=== PATIENT | female | born 1975 | race Caucasian/White ===

== ENCOUNTER 2018-08-31 20:12 | Inpatient (IN) ==
[2018-09-01] MEDS ORDERED: Naloxone 0.4 MG/ML INJ IVP PRN (01:20)
[2018-09-01] MEDS: 0.9 % Sodium Chloride 1,000 ML IVC SCH ×2 (01:40→17:44)
[2018-09-01 02:27] LABS: Basophils # 0.1 K/mcL (0.0-0.2); Basophils % 0.5 %; Eosinophils % 0.1 %; Hematocrit 40.3 % (35.3-44.9); Hemoglobin 14.1 g/dL (11.5-15.4); Immature Granulocytes % 0.4 % (0-4); Lymphocytes # 1.8 K/mcL (0.6-4.6); Lymphocytes % 11.3 %; Mean Corpuscular Hemoglobin 31.3 pg (28.0-33.3); Mean Corpuscular Volume 89.6 fL (83.0-100.0); Mean Platelet Volume 9.2 fL (9.4-12.4); Monocytes # 0.9 K/mcL (0.0-1.3); Monocytes % 5.8 %; Neutrophils # 13.2 K/mcL (1.6-8.9); Platelet Count 332 K/mcL (140-400); Red Cell Distribution Width 12.7 % (11.5-14.5); Segmented Neutrophils % 81.9 %
[2018-09-01 02:36] LABS: Prothrombin Time 11.7 Seconds (9.4-12.1)
[2018-09-01 02:39] LABS: Activated Partial Thrombo Time 30.6 Seconds (26.0-36.0)
[2018-09-01 02:45] LABS: Alanine Aminotransferase 10 Units/L (7-52); Albumin 4.1 g/dL (3.5-5.7); Albumin/Globulin Ratio 1.5 (1.1-2.2); Alkaline Phosphatase 47 Units/L (34-104); Aspartate Amino Transferase 12 Units/L (13-39); BUN/Creatinine Ratio 16 (6-26); Bilirubin,Total 0.6 mg/dL (0.3-1.0); Blood Urea Nitrogen 9 mg/dL (6-20); Calcium 8.9 mg/dL (8.6-10.3); Carbon Dioxide 20 mEq/L (23-29); Chloride 104 mEq/L (98-107); Globulin 2.7 g/dL (2.4-3.5); Glucose 119 mg/dL (70-105); Osmolality,Calculated 278 (280-300); Potassium 3.5 mEq/L (3.5-5.1); Sodium 134 mEq/L (136-145); Total Protein 6.8 g/dL (6.4-8.9); eGFR For Non-African Americans > 60 (> 60)
--- NOTE | 2018-09-01 02:59 | Internal Med History&Physical ---
Date of Encounter: 09/01/18 Time of Encounter: 01:00 Internal Medicine - H&P: HPI Chief complaint: uncontrolled HTN; episaxtis Admitted From: Hospital to Hospital Transfer Plans for Post Hospital Care: Home History of present illness: Ms. Don is a 42 year old female who presents in transfer from [facility] ER in [place]. She presented there with an uncontrolled nosebleed requiring intervention and packing in the ER. Her blood pressure was also noted to be significantly elevated in excess of 250 systolic. However, that was after she received Atif-Synephrine to her nares in hopes of trying to control the nosebleed. Her nosebleed was controlled in her left naris with nasal packing in the ER. Then, a transfer request was made to send patient to [facility] for ongoing care and ENT consultation. Upon my assessment of the patient at the bedside, she was feeling relatively well other than pressure in her left naris from the packing. As I was interviewing her and examining her, she started having some bloody dribble from her right nares, which then became a steady dribble to steady flow. Within a minute or two, she became nauseous and did vomit up a cupful of blood, presumably from the back of her throat/postnasal drip. I had her pinch her nose and asked her nurse to help clean her up while I contacted ENTDr. William Herbert. He suggested we try and put pressure on the right nares and control her blood pressure since she cannot tolerate any vasoconstrictors due to blood pressure. He asked that I call him back shortly afterwards. I reassessed the patient shortly thereafter and her bleeding had stabilized. She still had some bloody discharge, but it was more of a slow dribble at that point. I asked her and her nurse to continue to hold pressure for at least 20 minutes and to monitor closely. I contacted Dr. Herbert back and asked him to see her in consultation in the morning. However, if she develops any significant bleed from the nose and/or vomiting blood from postnasal bloody discharge, I will ask him to come in urgently. Meanwhile, we will try to control blood pressure and monitor her closely. Patient denies any prior problems with nosebleeds, sinus problems, nasal polyps, or hemoptysis. She does smoke. She denies any illicit drug use. She drinks rare alcohol. Past Med Surg Social Fam HX - Past Medical History Attestation: Yes The following information was validated with the patient. Source: patient, obtained from family, other (limited [facility] records) Medical history: hypertension Psychiatric history: no psych history - Past Surgical History Surgical History: - Social History Smoking Status: Current every day smoker Packs per day: 0.5 Smokeless Tobacco Status: No Alcohol use: none Drug use: none Current living situation: Home, With Family Activity Level: Independent ambulation Recent Out of Country Travel Within the Last 8 Weeks: No - Family History Mother History Unknown: Yes Hx Family HEENT Disorders: No Father Hx Family HEENT Disorders: No Internal Medicine - H&P: Meds No Known Home Drugs 08/31/18 [History] Allergy/AdvReac Type Severity Reaction Status Date / Time Penicillins Allergy Rash Verified 08/31/18 22:58 - Constitutional Constitutional: no chills, no fever(s), no night sweats - EENT Eyes: no blurry vision, no change in vision Ears: no ear pain, no tinnitus Nose, mouth and throat: epistaxis, no nasal congestion, no nasal discharge, no sinus pain, no sinus pressure, no sore throat - Cardiovascular Cardiovascular ROS IM: no chest pain, no dyspnea, no dyspnea on exertion - Respiratory Respiratory: no cough, no hemoptysis, no chest congestion, no excessive phlegm production, no change in phlegm color, no pain with cough - Gastrointestinal Gastrointestinal: no abdominal pain, no diarrhea, no hematemesis, no hematochezia, no melena, no nausea, no vomiting - Genitourinary Genitourinary: no dysuria, no flank pain, no hematuria - Musculoskeletal Musculoskeletal ROS IM: no arthralgias, no back pain - Integumentary Integumentary IM: no rash, no jaundice - Neurological Neurological ROS: no disequilibrium, no dizziness, no focal weakness, no frequent falls, no headache(s) - Psychiatric Psychiatric: no anxiety, no depression - Endocrine Endocrine IM: no polydipsia, no polyphagia, no polyuria - Allergic/Immunologic Allergic/Immunologic: no wheezing, no GI upset with certain foods - Constitutional Vitals: Temp Pulse Resp BP Pulse Ox 98.5 F 111 18 168/106 98 08/31/18 23:00 08/31/18 23:00 08/31/18 23:00 08/31/18 23:00 08/31/18 23:00 General appearance: Present: cooperative, mild distress, A&O X 3, pleasant, answers questions appropriately Exam: blood dripping from right nostril/naris - Head Head exam: Present: atraumatic, normal inspection - Eye Eye exam: Present: EOMI, PERRL. Absent: scleral icterus Pupils: Present: normal accommodation - ENT ENT exam: Present: normal external ear exam, normal oropharynx Additional comments: left naris packed from [facility]; right naris with bright red blood now slowly dripping - Neck Neck exam general surgery: Present: full ROM, supple, trachea midline. Absent: lymphadenopathy, tenderness, nuchal rigidity, thyromegaly - Respiratory Respiratory exam: Present: CTAB. Absent: chest wall tenderness, rales, rhonchi, wheezes - Cardiovascular Cardiovascular exam: Present: RRR, +S1, +S2. Absent: diastolic murmur, systolic murmur - GI/Abdominal GI/Abdominal exam: Present: normal bowel sounds, soft. Absent: guarding, hepatomegaly, mass, rebound, splenomegaly, tenderness - Extremities Exam Extremities exam: Present: full ROM, normal capillary refill, warm, radial pulse s palpable and symmetrical. Absent: calf tenderness, pedal edema, tenderness - Back Exam Back exam: Present: normal inspection. Absent: CVA tenderness (L), CVA tenderness (R) - Neurological Exam Neurological exam: Present: alert, CN II-XII intact, oriented X3, no focal deficits - Psychiatric Psychiatric exam: Present: normal affect, normal mood - Skin Skin exam: Present: dry, intact, warm Internal Med - H&P Results - Labs CBC & Chem 7: 09/01/18 02:06 Labs: Short CBC 09/01/18 Range/Units 02:06 WBC 16.1 H (4.3-11.1) K/mcL Hgb 14.1 (11.5-15.4) g/dL Hct 40.3 (35.3-44.9) % Plt Count 332 (140-400) K/mcL Neutrophils # 13.2 H (1.6-8.9) K/mcL I reviewed the labs from [facility] and include the following: WBC 8.8 Hemoglobin 15.6 Hematocrit 46.7 Platelets 330 Sodium 137 Potassium 4.6 Chloride 104 Carbon dioxide 27 BU when 12 Glucose 96 Creatinine 0.73 PT 10.7 INR 0.9 PTT 31 Chest x-ray negative Head CT negative - Assessment and Plan (1) Severe epistaxis Current Visit: Yes Status: Acute Assessment and plan: 1. Patient and RN instructed to apply pressure to right side of nose in hopes of containing nosebleed. 2. Monitor closely. 3. If severe epistaxis occurs again and/or she vomits any significant blood as before, will call in Dr. Herbert urgently. Furthermore, if she develops any further concern for aspiration of blood, will prophylactically intubate if necessary to protect her airway. 4. Will start Rocephin to cover nasal pathogens. 5. ENT consultation with Dr. Herbert -- to see in the morning, sooner if necessary. (2) Uncontrolled hypertension Current Visit: Yes Status: Acute Assessment and plan: 1. Will closely and on telemetry. 2. Will order Hydralazine and Labetolol PRN to control BP. 3. Will start Lisinopril daily for chronic BP control. (3) DVT prophylaxis Current Visit: Yes Status: Acute Assessment and plan: 1. EPCD's. 2. No AC due to epistaxis.
[2018-09-01] MEDS ORDERED: *HR* Labetalol 20 MG/4 ML SYRINGE IVP ONE ×2 (03:16→05:09)
[2018-09-01] MEDS: *HR* Labetalol 20 MG/4 ML SYRINGE IVP PRN ×2 (03:34→09:16)
[2018-09-01] MEDS: Ondansetron 4 MG/2 ML VIAL IVP PRN (05:32)
[2018-09-01] MEDS ORDERED: 0.9 % Sodium Chloride 1,000 ML IVC ONE (05:51)
--- NOTE | 2018-09-01 06:14 | ENT - Consult Note ---
Date of Encounter: 09/01/18 Time of Encounter: 06:10 Assessment and Plan (1) Severe epistaxis Current Visit: Yes Status: Acute --The Merocel packing was misplaced, this was removed, and a 5.5 cm Rhino Rocket was placed in the left nasal cavity. After placement there is no evidence of active bleeding. --The patient is tachycardic approximately 109, given that the patient has had severe epistaxis for over 12 hours continue fluid resuscitation with IV fluids. --The packing is to be in place for approximately 3-5 days. --While the patient has packing present, I do recommend that the patient be on an antibiotic such as Keflex 500 mg 3 times a day. --The patient will follow up in my office in 3-5 days for removal of the nasal packing --ENT will sign off, however we will be available if there is any further bleeding. (2) Uncontrolled hypertension Current Visit: Yes Status: Acute --Likely contributing factor to epistaxis --Management per Primary History of Present Illness Reason for ENT Consult: epistaxis Requesting physician: Leroy Hanson History of present illness: This is a 42-year-old female who presented as a transfer from [facility] with hypertensive urgency. The patient was experiencing high blood pressure with systolic pressures over 250. ENT is being asked to see the patient in consultation for epistaxis. According to the patient she has been experiencing a left-sided nosebleeds since 11 AM on 08/31/2018. The patient states that she did not do any type of effort to stop the nosebleed and was then subsequently seen in [facility] emergency departm ent and a Merocel packing was placed on the left. The patient has continued to bleed around the packing when she Valsalva's, especially when vomiting. The patient denies any trauma to the nose, nasal irritants, nose picking, recent surgery to the nose, or any history of septal perforation. The patient denies any personal or family history of bleeding disorders, she herself does have a history of hypertension. Past Med Surg Social Fam HX - Past Medical History Medical history: hypertension Psychiatric history: no psych history - Past Surgical History Surgical History: - Social History Smoking Status: Current every day smoker Packs per day: 0.5 Smokeless Tobacco Status: No Alcohol use: none Drug use: none - Family History Mother History Unknown: Yes Hx Family HEENT Disorders: No Father Hx Family HEENT Disorders: No Medications and Allergies No Known Home Drugs 08/31/18 [History] Allergy/AdvReac Type Severity Reaction Status Date / Time Penicillins Allergy Rash Verified 08/31/18 22:58 ENT - ROS - Constitutional Constitutional ROS: headache(s), no fever(s) - EENT Nose, mouth and throat: as per HPI - Cardiovascular Cardiovascular ROS IM: no chest pain, no chest pain at rest, no chest pain with activity, no dyspnea, no edema, no irregular heart rhythm, no radiating jaw, neck or arm pain, no lightheadedness, no orthopnea, no paroxysmal nocturnal dyspnea, no syncope - Respiratory no cough, no dyspnea, no hemoptysis, no dyspnea on exertion, no wheezing, no snoring, no stridor, no pain on inspiration, no chest congestion, no excessive phlegm production, no change in phlegm color, no pain with cough - Musculoskeletal Musculoskeletal ROS: no abnormal gait, no muscle weakness, no myalgias, no neck pain, no numbness, no stiffness, no tingling - Neurological Neurological ROS: no abnormal gait, no abnormal hearing, no abnormal speech, no disequilibrium, no dizziness, no focal weakness, no frequent falls, no headache(s), no lack of coordination, no numbness, no paresthesias, no restless legs, no syncope, no tingling, no tremor(s), no vertigo, no weakness - Endocrine Endocrine: no cold intolerance, no deeping of the voice, no excessive sweating, no fatigue, no flushing, no heat intolerance, no polydipsia, no polyphagia, no polyuria ENT Exam Initial Vital Signs Pulse BP 109 158/97 08/31/18 21:45 08/31/18 21:45 - Eyes PERRL, normal ocular movement - ENT normal pinna, normal mucosa, no hearing loss, no congestion, deviated nasal septum, Other (There is a 10 cm Merocel packing that is not completely inserted into the left nasal cavity, there is blood wicking from the packing. There is no evidence of septal perforation, the right nasal septum does not show any evidence of active bleeding. On oral exam, the mucosa is dry in the mouth, there is no evidence of active bleeding. Posterior pharyngeal wall after placement of the 5.5 cm Rhino Rocket.). negative: normal nares, decreased hearing, nasal discharge, poor care home, dentures, mucosal exudate - Neck no masses, trachea midline, no lymphadectomy. negative: deviated trachea, diffuse goiter, limited ROM - Respiratory normal respiratory effort, clear to percussion - Neurologic CN 2-12 grossly intact, normal coordination, normal sensation - Psychiatric oriented to time, oriented to person, oriented to place, speech is normal, memory intact Exam Initial Vital Signs Pulse BP 109 158/97 08/31/18 21:45 08/31/18 21:45 Results - Labs 09/01/18 02:06 09/01/18 02:06 Abnormal lab results WBC 16.1 K/mcL (4.3-11.1) H 09/01/18 02:06 MPV 9.2 fL (9.4-12.4) L 09/01/18 02:06 Neutrophils # 13.2 K/mcL (1.6-8.9) H 09/01/18 02:06 Sodium 134 mEq/L (136-145) L 09/01/18 02:06 Carbon Dioxide 20 mEq/L (23-29) L 09/01/18 02:06 Creatinine 0.57 mg/dL (0.60-1.20) L 09/01/18 02:06 Glucose 119 mg/dL (70-105) H 09/01/18 02:06 Calculated Osmolality 278 (280-300) L 09/01/18 02:06 AST 12 Units/L (13-39) L 09/01/18 02:06 Diabetes panel 09/01/18 Range/Units 02:06 Sodium 134 L (136-145) mEq/L Potassium 3.5 (3.5-5.1) mEq/L Chloride 104 (98-107) mEq/L Carbon Dioxide 20 L (23-29) mEq/L BUN 9 (6-20) mg/dL Creatinine 0.57 L (0.60-1.20) mg/dL Glucose 119 H (70-105) mg/dL Calcium 8.9 (8.6-10.3) mg/dL AST 12 L (13-39) Units/L ALT 10 (7-52) Units/L Alkaline Phosphatase 47 (34-104) Units/L Albumin 4.1 (3.5-5.7) g/dL Calcium panel 09/01/18 Range/Units 02:06 Calcium 8.9 (8.6-10.3) mg/dL Albumin 4.1 (3.5-5.7) g/dL Pituitary panel 09/01/18 Range/Units 02:06 Sodium 134 L (136-145) mEq/L Potassium 3.5 (3.5-5.1) mEq/L Chloride 104 (98-107) mEq/L Carbon Dioxide 20 L (23-29) mEq/L BUN 9 (6-20) mg/dL Creatinine 0.57 L (0.60-1.20) mg/dL Glucose 119 H (70-105) mg/dL Calcium 8.9 (8.6-10.3) mg/dL Adrenal panel 09/01/18 Range/Units 02:06 Sodium 134 L (136-145) mEq/L Potassium 3.5 (3.5-5.1) mEq/L Chloride 104 (98-107) mEq/L Carbon Dioxide 20 L (23-29) mEq/L BUN 9 (6-20) mg/dL Creatinine 0.57 L (0.60-1.20) mg/dL Glucose 119 H (70-105) mg/dL Calcium 8.9 (8.6-10.3) mg/dL Total Bilirubin 0.6 (0.3-1.0) mg/dL AST 12 L (13-39) Units/L ALT 10 (7-52) Units/L Alkaline Phosphatase 47 (34-104) Units/L Albumin 4.1 (3.5-5.7) g/dL All other labs normal. Consult Discharge Plan - Plan Referrals: NONE,PCP [Primary Care Provider] -
--- NOTE | 2018-09-01 06:31 | ENT - Procedure Note ---
Date of procedure: 09/01/18 Pre-op diagnosis: Severe epistaxis Post-op diagnosis: same Procedure: Control of epistaxis with nasal packing Consent: Verbal consent was obtained from the patient after discussing the risks benefits and alternatives to control the epistaxis. We discussed the risk of septal perforation, continued epistaxis, need for further treatment, pain, and infection. Description of procedure: After discussing the risks benefits and alternatives to the proposed procedure, the Merocel packing was removed and the nasal endoscope was used to evaluate the nasal cavity on both the left and right sides. The source of bleeding was identified on the left septum inferiorly. Following this the scope was removed and a 5.5 cm Rhino Rocket was placed in the left nasal cavity. The patient tolerated the procedure well without complication. Anesthesia: none Surgeon: William Herbert Was there an assistant bookkeeper present: No Estimated blood loss (cc): 5 Condition: stable
[2018-09-01 08:09] LABS: Basophils # 0.1 K/mcL (0.0-0.2); Basophils % 0.4 %; Eosinophils % 0.1 %; Hematocrit 37.6 % (35.3-44.9); Hemoglobin 12.9 g/dL (11.5-15.4); Immature Granulocytes % 0.5 % (0-4); Lymphocytes # 1.4 K/mcL (0.6-4.6); Lymphocytes % 9.5 %; Mean Corpuscular HGB Conc 34.3 g/dL (31.6-35.5); Mean Corpuscular Hemoglobin 31.1 pg (28.0-33.3); Mean Corpuscular Volume 90.6 fL (83.0-100.0); Mean Platelet Volume 9.1 fL (9.4-12.4); Monocytes # 0.8 K/mcL (0.0-1.3); Monocytes % 5.7 %; Neutrophils # 12.3 K/mcL (1.6-8.9); Platelet Count 310 K/mcL (140-400); Red Blood Count 4.15 M/mcL (3.82-4.97); Red Cell Distribution Width 12.9 % (11.5-14.5); Segmented Neutrophils % 83.8 %
[2018-09-01] MEDS: Lisinopril 20 MG TABLET PO SCH (09:15)
[2018-09-01] MEDS: cefTRIAXone 1,000 MG in Water for inj. (sterile) 20 ML 10 ML IVP SCH (09:15)
--- NOTE | 2018-09-01 10:14 | Internal Med Progress Note ---
Hospitalist Progress Note - Encounter Date of Encounter: 09/01/18 Time of Encounter: 10:12 - Subjective Interval History: Pt is feelign better, stated that she is tired and wants to rest. No prior bleeding issues. - Exam Vitals: Temp Pulse Resp BP Pulse Ox 97.8 F 88 18 160/100 98 09/01/18 07:20 09/01/18 07:20 09/01/18 07:20 09/01/18 07:20 09/01/18 07:20 Exam: blood dripping from right nostril/naris - Summary of Assessment and Plan Summary of Assessment and Plan: (1) Severe epistaxis ENT had insertedt the rhinorocket and currently stopped we will repeat CBC the CT of the head was essentially normal Coag normal I do not see any red flags in term of bleeding diathesis. (2) Uncontrolled hypertension Current Visit: Yes Status: Acute Assessment and plan: Came in at 250 and currently BP is the 160's, it is adequately controlled we will cont lisinopril and hydralazine 10 IV PRN as well We are OK with BP in the 160's. (3) DVT prophylaxis Current Visit: Yes Status: Acute Assessment and plan: 1. EPCD's. only 4) dispo: possible DC in AM if bleeding stopped Time; 35min - Time Spent with Patient Total time spent is greater than 50% in coordination of care (as documented) at patient's floor/unit and/or counseling patient: Internal Medicine: Result - Labs CBC & Chem 7: 09/01/18 07:52 09/01/18 02:06 Labs: Short CBC 09/01/18 09/01/18 Range/Units 02:06 07:52 WBC 16.1 H 14.7 H (4.3-11.1) K/mcL Hgb 14.1 12.9 (11.5-15.4) g/dL Hct 40.3 37.6 (35.3-44.9) % Plt Count 332 310 (140-400) K/mcL Neutrophils # 13.2 H 12.3 H (1.6-8.9) K/mcL BMP 09/01/18 02:06 Sodium 134 L Potassium 3.5 Chloride 104 Carbon Dioxide 20 L BUN 9 Creatinine 0.57 L Glucose 119 H Calcium 8.9 Liver Function 09/01/18 Range/Units 02:06 Total Bilirubin 0.6 (0.3-1.0) mg/dL AST 12 L (13-39) Units/L ALT 10 (7-52) Units/L Alkaline Phosphatase 47 (34-104) Units/L Albumin 4.1 (3.5-5.7) g/dL - ABG Interpretation ABG results: PT/INR, D-dimer PT 11.7 Seconds (9.4-12.1) 09/01/18 02:06 - Impressions Impressions Head CT 09/01/18 07:34 IMPRESSION: No gross acute intracranial process. Mild paranasal sinus disease. D/ / Zeeshan Cabrera MD / Zeeshan Cabrera MD Interpreting Provider: Zeeshan Cabrera MD Consult Discharge Plan - Plan Referrals: NONE,PCP [Primary Care Provider] -
[2018-09-01] MEDS: Ondansetron 4 MG/2 ML VIAL IVP SCH ×2 (12:49→17:46)
[2018-09-01 15:10] LABS: Hematocrit 37.9 % (35.3-44.9); Hemoglobin 13.3 g/dL (11.5-15.4)
[2018-09-01 19:49] LABS: Hematocrit 38.9 % (35.3-44.9); Hemoglobin 13.3 g/dL (11.5-15.4)
[2018-09-01] MEDS: Acetaminophen 325 MG TABLET PO PRN (20:37)
[2018-09-02] MEDS: *HR* Labetalol 20 MG/4 ML SYRINGE IVP PRN ×3 (01:46→23:56)
[2018-09-02 02:20] LABS: Basophils # 0.1 K/mcL (0.0-0.2); Basophils % 0.6 %; Eosinophils % 0.4 %; Hematocrit 37.1 % (35.3-44.9); Hemoglobin 12.7 g/dL (11.5-15.4); Immature Granulocytes % 0.4 % (0-4); Lymphocytes # 2.8 K/mcL (0.6-4.6); Lymphocytes % 27.3 %; Mean Corpuscular HGB Conc 34.2 g/dL (31.6-35.5); Mean Corpuscular Hemoglobin 31.4 pg (28.0-33.3); Mean Corpuscular Volume 91.8 fL (83.0-100.0); Mean Platelet Volume 9.3 fL (9.4-12.4); Monocytes % 9.7 %; Neutrophils # 6.3 K/mcL (1.6-8.9); Platelet Count 308 K/mcL (140-400); Red Blood Count 4.04 M/mcL (3.82-4.97); Red Cell Distribution Width 13.3 % (11.5-14.5); Segmented Neutrophils % 61.6 %
[2018-09-02 02:27] LABS: Prothrombin Time 10.9 Seconds (9.4-12.1)
[2018-09-02 02:39] LABS: BUN/Creatinine Ratio 10 (6-26); Blood Urea Nitrogen 5 mg/dL (6-20); Calcium 8.7 mg/dL (8.6-10.3); Carbon Dioxide 22 mEq/L (23-29); Chloride 109 mEq/L (98-107); Glucose 115 mg/dL (70-105); Osmolality,Calculated 286 (280-300); Potassium 3.2 mEq/L (3.5-5.1); Sodium 139 mEq/L (136-145); eGFR For Non-African Americans > 60 (> 60)
[2018-09-02] MEDS: Ondansetron 4 MG/2 ML VIAL IVP PRN (06:20)
--- NOTE | 2018-09-02 06:26 | Event Note ---
Date of Encounter: 09/02/18 Time of Encounter: 06:24 Called by RN stating patient just had another bout of vomiting blood/post-nasal drip of about 50-75 ml. Patient remains hemodynamically stable and H/H stable. Will contact ENT ask to reassess patient.
[2018-09-02] MEDS: cefTRIAXone 1,000 MG in Water for inj. (sterile) 20 ML 10 ML IVP SCH (07:51)
[2018-09-02] MEDS: Lisinopril 20 MG TABLET PO SCH (07:52)
[2018-09-02] MEDS ORDERED: 0.9 % Sodium Chloride 500 ML ONE (08:05)
[2018-09-02 08:27] LABS: Hematocrit 36.7 % (35.3-44.9); Hemoglobin 12.6 g/dL (11.5-15.4)
--- NOTE | 2018-09-02 09:22 | ENT - Progress Note ---
Date of Encounter: 09/02/18 Time of Encounter: 08:30 - Assessment and Plan (1) Severe epistaxis Current Visit: Yes Status: Acute Patient seen and examined this a.m., due to report of possible bleeding around nasal packing. Patient reported spitting up a blood clot this a.m. otherwise no bleeding from right naris or around left nasal packing. Left nasal Rhino rocket packing noted to be in place with good position, with no oozing or bleeding around anterior portion of packing. No oozing or bleeding noted from right naris. No blood clots, oozing, or active bleeding noted in oropharynx. No further intervention is recommended at this time. Recommend patient follow up outpatient in ENT office for removal of packing as scheduled. CBC reviewed and H&H within normal range. Continue oral antibiotic as previously recommend while nasal packing in place. ENT signing off at this time, may contact if further bleeding occurs. (2) Uncontrolled hypertension Current Visit: Yes Status: Acute Recommend optimization of blood pressure as this is a contributing factor for epistaxis episodes. Management per primary care team. Subjective Patient reports: tolerating liquids well, tolerating a regular diet, other (reports recently spitting up of blood clot this A.M.) Objective Initial Vital Signs Pulse BP 109 158/97 08/31/18 21:45 08/31/18 21:45 - General physical appearance well developed, well nourished, no distress - Eyes PERRL, normal ocular movement - ENT CN 2-12 grossly intact, Other (no bleeding or oozing noted around left nasal packing. No bleeding from right naris. No clots, active bleeding, or oozing in the oropharynx. ) - Neck trachea midline - Respiratory normal expansion, normal respiratory effort - Psychiatric oriented to time, oriented to person, oriented to place, speech is normal - Labs 09/02/18 08:06 09/02/18 01:57 Diabetes panel 09/02/18 Range/Units 01:57 Sodium 139 (136-145) mEq/L Potassium 3.2 L (3.5-5.1) mEq/L Chloride 109 H (98-107) mEq/L Carbon Dioxide 22 L (23-29) mEq/L BUN 5 L (6-20) mg/dL Creatinine 0.51 L (0.60-1.20) mg/dL Glucose 115 H (70-105) mg/dL Calcium 8.7 (8.6-10.3) mg/dL Calcium panel 09/02/18 Range/Units 01:57 Calcium 8.7 (8.6-10.3) mg/dL Pituitary panel 09/02/18 Range/Units 01:57 Sodium 139 (136-145) mEq/L Potassium 3.2 L (3.5-5.1) mEq/L Chloride 109 H (98-107) mEq/L Carbon Dioxide 22 L (23-29) mEq/L BUN 5 L (6-20) mg/dL Creatinine 0.51 L (0.60-1.20) mg/dL Glucose 115 H (70-105) mg/dL Calcium 8.7 (8.6-10.3) mg/dL Adrenal panel 09/02/18 Range/Units 01:57 Sodium 139 (136-145) mEq/L Potassium 3.2 L (3.5-5.1) mEq/L Chloride 109 H (98-107) mEq/L Carbon Dioxide 22 L (23-29) mEq/L BUN 5 L (6-20) mg/dL Creatinine 0.51 L (0.60-1.20) mg/dL Glucose 115 H (70-105) mg/dL Calcium 8.7 (8.6-10.3) mg/dL Consult Discharge Plan - Plan Referrals: NONE,PCP [Primary Care Provider] -
[2018-09-02] MEDS: Acetaminophen 325 MG TABLET PO PRN ×2 (10:09→16:19)
--- NOTE | 2018-09-02 10:43 | Internal Med Progress Note ---
Hospitalist Progress Note - Encounter Date of Encounter: 09/02/18 Time of Encounter: 10:40 - Subjective Interval History: Pt again had an episode of the bleeding, with post nasal blood and clots over night. - Exam Vitals: Temp Pulse Resp BP Pulse Ox 97.5 F L 92 14 166/106 97 09/02/18 07:32 09/02/18 09:57 09/02/18 07:32 09/02/18 09:57 09/02/18 08:01 Exam: Gen: lookign tired Hert: s1, S2, RRR lungs: CTAB abd: soft NT/ND ENT: pt has some blood in the nostril with rhinorocket in place - Summary of Assessment and Plan Summary of Assessment and Plan: (1) Severe epistaxis ENT had insertedt the rhinorocket and currently stopped pt again bled over the night CT normal, await further recommendations by the ENT service. (2) Uncontrolled hypertension Current Visit: Yes Status: Acute Assessment and plan: Came in at 250 and currently BP is the 160's, it is adequately controlled we will cont lisinopril and hydralazine 10 IV PRN as well We are OK with BP in the 160's. (3) DVT prophylaxis Current Visit: Yes Status: Acute Assessment and plan: 1. EPCD's. only 4) dispo: await further recommendations from the ENT service. Time; 35min - Time Spent with Patient Total time spent is greater than 50% in coordination of care (as documented) at patient's floor/unit and/or counseling patient: Internal Medicine: Result - Labs CBC & Chem 7: 09/02/18 08:06 09/02/18 01:57 Labs: Short CBC 09/01/18 09/01/18 09/02/18 Range/Units 14:43 19:37 01:57 WBC 10.3 (4.3-11.1) K/mcL Hgb 13.3 13.3 12.7 (11.5-15.4) g/dL Hct 37.9 38.9 37.1 (35.3-44.9) % Plt Count 308 (140-400) K/mcL Neutrophils # 6.3 (1.6-8.9) K/mcL 09/02/18 Range/Units 08:06 WBC (4.3-11.1) K/mcL Hgb 12.6 (11.5-15.4) g/dL Hct 36.7 (35.3-44.9) % Plt Count (140-400) K/mcL Neutrophils # (1.6-8.9) K/mcL BMP 09/02/18 01:57 Sodium 139 Potassium 3.2 L Chloride 109 H Carbon Dioxide 22 L BUN 5 L Creatinine 0.51 L Glucose 115 H Calcium 8.7 - ABG Interpretation ABG results: PT/INR, D-dimer PT 10.9 Seconds (9.4-12.1) 09/02/18 01:57 Consult Discharge Plan - Plan Referrals: NONE,PCP [Primary Care Provider] -
[2018-09-02 14:48] LABS: Hematocrit 38.8 % (35.3-44.9); Hemoglobin 12.9 g/dL (11.5-15.4)
[2018-09-02 19:43] LABS: Hematocrit 37.3 % (35.3-44.9); Hemoglobin 12.8 g/dL (11.5-15.4)
[2018-09-03 01:41] LABS: Hematocrit 36.9 % (35.3-44.9); Hemoglobin 12.5 g/dL (11.5-15.4)
[2018-09-03] MEDS: Lisinopril 20 MG TABLET PO SCH (08:23)
[2018-09-03] MEDS: Acetaminophen 325 MG TABLET PO PRN (08:23)
[2018-09-03] MEDS: cefTRIAXone 1,000 MG in Water for inj. (sterile) 20 ML 10 ML IVP SCH (08:23)
[2018-09-03 11:22] VITALS: BP 140/84
--- NOTE | 2018-09-03 11:44 | Discharge Summary ---
- NOTES TO OUTPATIENT PROVIDER Notes to Outpatient Provider: PCp 2- 5 days for BP managemnet, ENT tomororw and call ENT with further epistaxis issues Orders not resulted at time of discharge: Pending orders 09/01/18 01:22 ECG 12 lead ECG [ECG] Routine 09/01/18 07:52 Procalcitonin Stat Date of Encounter: 09/03/18 Time of Encounter: 11:42 - Discharge Diagnosis (1) Severe epistaxis Priority: Primary Status: Acute Hospital course: Ms. Don is a 42 year old female who presents in transfer from [facility] ER in [place]. She presented there with an uncontrolled nosebleed requiring intervention and packing in the ER. Her blood pressure was also noted to be significantly elevated in excess of 250 systolic. However, that was aft er she received Atif-Synephrine to her nares in hopes of trying to control the nosebleed. Her nosebleed was controlled in her left naris with nasal packing in the ER. Then, a transfer request was made to send patient to [facility] for ongoing care and ENT consultation. Pt was kept in the hsopital and pt was seen by ENT who put a rhino rocket and pt felt better, then over night, again some postnasal drip, and ENT saw the pt again and thought it was old blood, pt was observed and no further issues. Pt deemed stable enough to be dsicharged with BP meds. Pt will be on metoprolol and lisnopril. Discharge discussed with: patient - Time Spent with Patient Total time spent providing and/or coordinating discharge services: - Discharge Medications Prescriptions: New Lisinopril [Zestril] 20 mg PO DAILY #30 tablet Metoprolol [Lopressor] 25 mg PO BID #60 tablet Home Medications: Lisinopril [Zestril] 20 mg PO DAILY #30 tablet 09/03/18 [Rx] Metoprolol [Lopressor] 25 mg PO BID #60 tablet 09/03/18 [Rx] Allergies/Adverse Reactions: Allergy/AdvReac Type Severity Reaction Status Date / Time Penicillins Allergy Rash Verified 09/01/18 11:14 Date of admission: 09/01/18 01:36 Primary care physician: PCP NONE Consults: 09/01/18 01:24 Consult to Physician [CONS] Routine Consulting Provider: William Herbert Reason for Consult: epistaxis Time Notified: 01:24 Call Completed: Yes - Constitutional Vitals: Temp Pulse Resp BP Pulse Ox 98.1 F 72 18 140/84 97 09/03/18 07:12 09/03/18 11:20 09/03/18 06:38 09/03/18 11:20 09/03/18 06:38 General appearance: Present: cooperative, mild distress, A&O X 3, pleasant, answers questions appropriately Exam: Gen: lookign tired Hert: s1, S2, RRR lungs: CTAB abd: soft NT/ND ENT: pt has some blood in the nostril with rhinorocket in place - Patient Status Disposition: Home, Self-Care - Discharge Instructions Instructions: Metoprolol (By mouth), Lisinopril (By mouth), Epistaxis (DC), Chronic Hypertension (DC) Follow Up With: William Herbert DO [Partnered Physician] - 09/04/18 10:40 am Darion Sheth DO [Partnered Physician] - 09/10/18 10:00 am (Please fill out the new patient packet that will arrive in the mail and take with you to your appointment. If for some reason you don't receive the new patient packet in the mail please arrive by 0930 to fill out paper work. Take with you to your appointment Picture ID, Insurance cards, a list of medications . This office does not give out controlled medication. If you need to cancel please call [phone] 24 hours prior to your appointment.)
== END 2018-09-03 13:48 | disposition home or self-care (01) | DRG 151 ==
LOC: 2NNU
PROVIDERS: ADMIT Family Medicine; ATTEND Family Medicine

== ENCOUNTER 2018-09-05 14:08 | Observation (INO) ==
[2018-09-05] MEDS ORDERED: Oxymetazoline Nasal SPRAY BOTTLE NS ONE (14:34)
[2018-09-05] MEDS ORDERED: *HR* LORazepam 1 MG TABLET PO ONE (14:39)
--- NOTE | 2018-09-05 14:45 | Emergency Department Note ---
Disposition Clinical Impression: Epistaxis Hypertension Qualifiers: Hypertension type: unspecified Qualified Code(s): I10 - Essential (primary) hypertension Disposition: Home, Self-Care Condition: Good Instructions: Epistaxis (ED) Reasons to Return/Additional Instructions: 1. You were seen today in the ED for nose bleed. Your bleeding was controlled with TXA-imed Rhino Rockets. There is no evidence of any active bleeding at this time. 2. Please follow up with ENT Dr. Herbert and let him know you were seen here and that your rhino rockets were inserted. Please do not remove the nasal packing until evaluated by Dr. Herbert. 3. Please continue to take all of your prescription medications as prescribed. 4. If you get another nose bleed and are unable to control the bleeding at home, or if you develop new concerns, please return to the ED to be evaluated. Prescriptions: Oxycodone HCl/Acetaminophen [Percocet 5-325 mg Tablet] 1 each PO QID PRN 3 Days #12 tablet PRN Reason: Pain Referrals: William Herbert DO [Partnered Physician] - Forms: ED Satisfaction Letter Time of Disposition: 16:55 Epistaxis HPI - General Chief complaint: ED Epistaxis Stated complaint: epistaxis Time Seen by Provider: 09/05/18 14:23 Source: patient Mode of arrival: private vehicle Limitations: no limitations Nursing Notes Reviewed: Yes Vital Signs Reviewed: Yes - History of Present Illness HPI Narrative: Patient is a 42-year-old female that was recently admitted to this facility for uncontrolled hypertension and started on a regimen of metoprolol and lisinopril. Initially when the patient reported to this facility she was having a nosebleed. Patient was seen by ENT while in this facility and they placed a Rhino Rocket which was removed yesterday. Patient then states that her nose began bleeding at approximately noon today while she was standing in her kitchen. Patient has been able to take her blood pressure medications, but she states that she quit smoking "cold turkey" yesterday. Patient's blood pressure on initial presentation was 178/110. - Related Data Previous Rx's Medication Instructions Recorded Lisinopril [Zestril] 20 mg PO DAILY #30 tablet 09/03/18 Metoprolol [Lopressor] 25 mg PO BID #60 tablet 09/03/18 Oxycodone HCl/Acetaminophen 1 each PO QID PRN 3 Days #12 tablet 09/05/18 [Percocet 5-325 mg Tablet] Allergies Allergy/AdvReac Type Severity Reaction Status Date / Time Penicillins Allergy Rash Verified 09/01/18 11:14 Constitutional: Denies: fever, chills Eyes: Denies: eye pain ENT ED: Reports: epistaxis. Denies: ear pain, throat pain Cardiovascular: Denies: chest pain, palpitations Respiratory: Denies: cough, dyspnea Gastrointestinal: Denies: abdominal pain, nausea, vomiting, diarrhea Genitourinary: Denies: urgency, dysuria Musculoskeletal: Denies: back pain, neck pain Integumentary: Denies: rash, abrasion Neurological: Denies: headache, weakness Psychiatric: Denies: anxiety, depression Endocrine: Denies: fatigue, heat or cold intolerance Hematological/Lymphatic: Denies: easy bleeding, easy bruising Allergic/Immunologic: Denies: facial swelling, urticaria Past Medical History - Past Medical History Medical history: Reports: hypertension Surgical history: Reports: Psychiatric history: Reports: no psych history - Social History Smoking Status: Current every day smoker Smokeless Tobacco Status: No Alcohol use: Reports: none Drug use: Reports: none Physical Exam - General Limitations: no limitations General appearance: alert - Head Head exam: atraumatic, normocephalic - Eye Eye exam: Present: normal appearance, PERRL, EOMI - Expanded ENT Exam External ear exam: Present: normal external inspection Nose exam: other (left nasal septum has evidence of recent chemical cauterization with silver nitrate but no evidence of active bleeding) - Neck Neck exam: Present: normal inspection, full ROM - Chest Chest inspection: Present: normal inspection, symmetric chest wall rise - Respiratory Respiratory exam: Present: normal lung sounds bilaterally. Absent: respiratory distress, wheezes - Cardiovascular Cardiovascular exam: Present: regular rate, normal rhythm - Abdominal Exam Abdominal exam: Present: soft, Non-Tender. Absent: tenderness, distention, guarding, rebound, rigidity - Extremities Exam Extremities exam: Present: normal inspection, full ROM - Back Exam Back exam: Present: normal inspection, full ROM - Neurological Exam Neurological exam: Present: alert, oriented X3 - Psychiatric Psychiatric exam: Present: normal affect, normal mood - Skin Skin exam: Present: warm, dry, intact Course Course Narrative: Pt has elevated BP on presentation, which previous ENT notes say could be contributing to epistaxis. Will pack nostrils with afrin-soaked cotton balls and apply nasal clamp. Will recheck in a few minutes. Suspect D/C with ENT FU. Will administer ativan as pt seems anxious from smoking cessation. - Reevaluation(s) Reevaluation #1: Pts epistaxis had stopped. Left nasal septum showed evidence of friable capillaries but no active bleeding. Will observe for twenty more minutes to ensure no bleeding. Time: 15:09 Reevaluation #2: Toney nostrils were bleeding on re-examination. Will insert rhinorockets in both nostrils with TXA. Time: 15:39 Reevaluation #3: Pt had bilateral TXA-impregnated 5.5 rhino rockets inserted into her nostrils. Pt tolerated the procedure well and bleeding was controlled at the end of the procedure. Will recheck in 20m. Suspect dispo. Time: 16:36 Vital Signs Temperature 98.0 F 09/05/18 14:15 Pulse Rate 99 09/05/18 14:15 Respiratory Rate 19 09/05/18 14:15 Blood Pressure 168/114 09/05/18 14:15 O2 Sat by Pulse Oximetry 90 09/05/18 14:15 Temperature 98.0 F 09/05/18 14:15 Pulse Rate 87 09/05/18 16:36 Respiratory Rate 16 09/05/18 16:36 Blood Pressure 195/117 09/05/18 16:36 O2 Sat by Pulse Oximetry 97 09/05/18 16:36 Oxygen Delivery Oxygen Delivery Room Air Epistaxis - [facility] Narrative Medical decision making narrative: Pts nose bleed was controlled with afrin-soaked cotton balls and direct pressure for fifteen minutes. Packing and nasal clamp was removed and pt was observed for another 20 minutes. After 20 minutes, pt nose began bleeding again, so TXA- impregnated Rhino rockets were inserted into bilateral nostrils. Pt was advised to continue her current medications and to follow up with ENT for further management. Pt verbalized understanding and agreement with the plan. Pt was given an opportunity to ask questions and all of her concerns were addressed. Pts bleeding was controlled at time of discharge and pt was sent home with instructions not to remove the rhino rockets until evaluated by ENT. Pt was advised that if her nose began to bleed again and she was unable to control it, that she should report to her nearest ED. ENT called to check on the patient during her course in the ED and agreed with our treatment plan. - Differential Diagnosis Likely: anterior epistaxis - Medical Records Medical records reviewed: Yes I reviewed the patient's medical records.
[2018-09-05] MEDS ORDERED: TRANEXAMIC ACID NS ONE (16:00)
[2018-09-05] MEDS ORDERED: WATER FOR INJ NS ONE (16:00)
[2018-09-05] MEDS ORDERED: *HR* OxyCODONE/APAP 10/325 TABLET PO STA (16:50)
[2018-09-05] MEDS ORDERED: hydrALAZINE 10 MG TABLET PO ONE (17:10)
--- NOTE | 2018-09-05 17:10 | Emergency Department Note ---
Disposition Clinical Impression: Epistaxis Hypertension Qualifiers: Hypertension type: unspecified Qualified Code(s): I10 - Essential (primary) hypertension Disposition: Still a Patient Condition: Good Prescriptions: Oxycodone HCl/Acetaminophen [Percocet 5-325 mg Tablet] 1 each PO QID PRN 3 Days #12 tablet PRN Reason: Pain Epistaxis HPI - General Chief complaint: ED Epistaxis Stated complaint: epistaxis Time Seen by Provider: 09/05/18 14:23 Source: patient Mode of arrival: private vehicle Limitations: no limitations Nursing Notes Reviewed: Yes Vital Signs Reviewed: Yes - History of Present Illness HPI Narrative: As RN was discharging patient, her nose began to bleed again. Opening a new note to document course. For full H&P and course prior to 1709, please see earlier note. Spoke with ENT, Dr. William Herbert who recommended blood pressure control and if that doesn't work, Sphenopalatine ligation from parish worker or IR embolization. - Related Data Previous Rx's Medication Instructions Recorded Lisinopril [Zestril] 20 mg PO DAILY #30 tablet 09/03/18 Metoprolol [Lopressor] 25 mg PO BID #60 tablet 09/03/18 Oxycodone HCl/Acetaminophen 1 each PO QID PRN 3 Days #12 tablet 09/05/18 [Percocet 5-325 mg Tablet] Allergies Allergy/AdvReac Type Severity Reaction Status Date / Time Penicillins Allergy Rash Verified 09/01/18 11:14 Constitutional: Denies: fever, chills Eyes: Denies: eye pain ENT ED: Reports: epistaxis. Denies: ear pain, throat pain Cardiovascular: Denies: chest pain, palpitations Respiratory: Denies: cough, dyspnea Gastrointestinal: Denies: abdominal pain, nausea, vomiting, diarrhea Genitourinary: Denies: urgency, dysuria Musculoskeletal: Denies: back pain, neck pain Integumentary: Denies: rash, abrasion Neurological: Denies: headache, weakness Psychiatric: Denies: anxiety, depression Endocrine: Denies: fatigue, heat or cold intolerance Hematological/Lymphatic: Denies: easy bleeding, easy bruising Allergic/Immunologic: Denies: facial swelling, urticaria Past Medical History - Past Medical History Medical history: Reports: hypertension Surgical history: Reports: Psychiatric history: Reports: no psych history - Social History Smoking Status: Current every day smoker Smokeless Tobacco Status: No Alcohol use: Reports: none Drug use: Reports: none Physical Exam - General Limitations: no limitations General appearance: alert Course - Reevaluation(s) Reevaluation #1: Ordered 10mg PO hydralazine and contacted interventional radiology. Time: 17:11 Reevaluation #2: Spoke with interventional radiology who stated that could ligate the internal maxillary artery. Spoke with Dr. Herbert who stated that would be acceptable. IR wanted PT/INR, added H&H, and type & screen. Additionally gave pt 10mg Hydralazine and asked RN to check BP in 30m. Time: 17:32 Reevaluation #3: Repeat BP 190/110, IR will assemble team and will be here around [id number]. Time: 17:58 Vital Signs Temperature 98.0 F 09/05/18 14:15 Pulse Rate 99 09/05/18 14:15 Respiratory Rate 19 09/05/18 14:15 Blood Pressure 168/114 09/05/18 14:15 O2 Sat by Pulse Oximetry 90 09/05/18 14:15 Temperature 98.0 F 09/05/18 14:15 Pulse Rate 63 09/05/18 21:17 Respiratory Rate 15 09/05/18 21:17 Blood Pressure 180/105 09/05/18 21:17 O2 Sat by Pulse Oximetry 100 09/05/18 21:17 Oxygen Delivery Oxygen Delivery Room Air Epistaxis - [facility] Narrative Medical decision making narrative: Pt reported with a nose bleed that started at noon today. Pt had reportedly been admitted to this facility for uncontrolled hypertension with epistaxis within the last week. During that visit, she had nasal packing placed by ENT, which was subsequently removed in the office on 09/04/18 without incident. On arrival, pt's BP was elevated as noted in chart and blood was flowing from her left nares. Initial management included afrin-soak cotton balls which temporarily controlled the bleeding but within 20 minutes of cotton-ball removed, bleeing started again. Pt then had TXA-soaked rhino rockets placed in bilateral nares with initial control of bleeding, but within twenty minutes, began bleeding around the nasal packing into the posterior pharynx and through the left nare. Consulted with ENT, Dr. William Herbert, who suggested that the pt have embolization under IR guidance. Consulted with interventional radiologist who agreed to perform embolization, assembled IR team, and took patient to IR suite for further management. Spoke with hospitalist, Dr. Armstrong who agreed to bring the patient onto his service for overnight observation with ENT consultation in the morning. IR team also agreed to see the patient in the morning during rounds. Pt was kept aprised of the management plan with each step and verbalized understanding and agreement with the plan. Pt was given an opportunity to ask questions and all of her concerns were addressed. Pt remained hemodynamically stable while in the department with improvement of blood pressure before she went to IR. Pt was signed out to night team Dr. Ayan Fields and Dr. Willi Bolanos while pt was in IR suite. For full disposition, please see their notes. - Differential Diagnosis Likely: anterior epistaxis - Medical Records Medical records reviewed: Yes I reviewed the patient's medical records. - Lab Data Lab results reviewed: Yes I reviewed the patient's lab results. Result diagrams: 09/05/18 17:24 Lab Results 09/05/18 09/05/18 09/05/18 Range/Units 17:24 17:24 17:24 Hgb 12.7 (11.5-15.4) g/dL Hct 38.1 (35.3-44.9) % PT 11.3 (9.4-12.1) Seconds INR 1.0 Blood Type A POSITIVE Antibody Screen NEGATIVE
[2018-09-05] MEDS ORDERED: Ondansetron ODT 4 MG TAB.RAPDIS SL ONE (17:29)
[2018-09-05 17:34] LABS: Hematocrit 38.1 % (35.3-44.9); Hemoglobin 12.7 g/dL (11.5-15.4)
[2018-09-05 17:42] LABS: Prothrombin Time 11.3 Seconds (9.4-12.1)
[2018-09-05] MEDS ORDERED: 0.9 % Sodium Chloride 500 ML ONE ×2 (20:00→20:12)
[2018-09-05] MEDS ORDERED: Heparin 1,000 UNITS/500 mL 500 ML ONE ×3 (20:00→21:02)
[2018-09-05] MEDS ORDERED: *HR* FentaNYL (PF) 100 MCG/2 ML VIAL ONE (20:13)
[2018-09-05] MEDS ORDERED: *HR* FentaNYL (PF) 100 MCG/2 ML VIAL IVP ONE (20:18)
[2018-09-05] MEDS ORDERED: Naloxone 0.4 MG/ML INJ IVP PRN ×2 (21:10→23:10)
[2018-09-05] MEDS ORDERED: Isovue-300 50 ML VIAL IVP ONE ×5 (21:27→21:28)
--- NOTE | 2018-09-05 21:35 | IR Procedure Note ---
Date of procedure: 09/05/18 Consent Obtained: Written consent Timeout: Correct patient and procedure verified, Time out performed, Skin prep completed Local anesthetic: Lidocaine 1% Indications: Epistaxis left nares Procedure Performed: Left int maxillary artery embolization Was there an assistant professor of art present: No Results/Findings: Successful embo left int max artery Estimated blood loss (cc): 2 Complications: None; Tolerated procedure well Post Procedure Treatment Plan: Monitor in ER.3 hour bedrest Specimen: None
[2018-09-05] MEDS ORDERED: Acetaminophen 325 MG TABLET PO PRN (21:36)
[2018-09-05] MEDS ORDERED: traMADol 50 MG TABLET PO PRN (23:10)
[2018-09-05] MEDS: *HR* OxyCODONE Immed Rel 5 MG TABLET PO PRN (23:22)
--- NOTE | 2018-09-06 00:13 | Internal Med History&Physical ---
Date of Encounter: 09/06/18 Time of Encounter: 00:12 Internal Medicine - H&P: HPI Chief complaint: Epistaxis History of present illness: Ms. Don is a 42 year old female who was recently discharged from the hospital after she presented with severe hypertension and epistaxis. Patient was treated for her hypertension and evaluated by ENT and discharged after placement of a Rhino Rocket. Patient follow-up with ENT yesterday who removed the packing. Patient reports recurrence of nosebleed around noon today. Arrival patient was noted to be hypertensive with a blood pressure of 178/110. Several attempts to pack and control patient's nosebleed was unsuccessful. ENT was consulted and in addition to blood pressure control suggested IR consult for possible emboliz ation. Patient was taken by IR and underwent left maxillary artery embolization. Past Med Surg Social Fam HX - Past Medical History Medical history: hypertension Psychiatric history: no psych history - Past Surgical History Surgical History: - Social History Smoking Status: Current every day smoker Smokeless Tobacco Status: No Alcohol use: none Drug use: none - Family History Mother Living Status: Still Living Age at : 75 Hx Family Cardiac Disorders: Yes (HTN) Hx Family HEENT Disorders: No Father Age: 74 Living Status: Still Living Hx Family Cardiac Disorders: Yes (CABG) Hx Family HEENT Disorders: No Internal Medicine - H&P: Meds Lisinopril [Zestril] 20 mg PO DAILY #30 tablet 09/03/18 [Rx] Metoprolol [Lopressor] 25 mg PO BID #60 tablet 09/03/18 [Rx] Oxycodone HCl/Acetaminophen [Percocet 5-325 mg Tablet] 1 each PO QID PRN 3 Days #12 tablet 09/05/18 [Rx] Allergy/AdvReac Type Severity Reaction Status Date / Time Penicillins Allergy Rash Verified 09/01/18 11:14 All Systems PM: A 10-system review of systems was performed and is negative for pertinent findings except as documented above in the HPI. - Constitutional Constitutional: no chills, no fever(s), no night sweats - EENT Eyes: no change in vision, no discharge, no pain, no photophobia Ears: no ear discharge, no ear pain, no tinnitus Nose, mouth and throat: no dysphagia, no nasal discharge, no neck pain, no sore throat - Cardiovascular Cardiovascular ROS IM: no chest pain, no diaphoresis, no dyspnea, no lightheadedness, no palpitations, no syncope - Respiratory Respiratory: no cough, no dyspnea, no wheezing, no excessive phlegm production - Gastrointestinal Gastrointestinal: no abdominal pain, no diarrhea, no hematemesis, no hematochezia, no melena, no nausea, no vomiting - Genitourinary Genitourinary: no change in urinary stream, no dysuria, no flank pain, no hematuria - Musculoskeletal Musculoskeletal ROS IM: no numbness, no tingling - Integumentary Integumentary IM: no rash, no unusual bruising - Neurological Neurological ROS: no confusion, no convulsions, no focal weakness, no numbness, no tingling, no tremor(s) - Hematologic/Lymphatic Hematologic/Lymphatic: no easy bruising - Constitutional Vitals: Temp Pulse Resp BP Pulse Ox 98.7 F 77 16 178/106 98 09/05/18 22:35 09/05/18 22:35 09/05/18 22:35 09/05/18 22:35 09/05/18 22:35 Exam: General: Alert and oriented Skin:Normal color, no rash, no lesions. HEENT:EOM, pupils equal, round and reactive. Cardiovascular:Normal S1 & S2, no rubs, murmurs or gallops. No JVD. Pulse regular. Lungs:Normal breath sounds, no wheezes or crackles. Abdomen:Soft, non-tender, no rigidity. Extremities:No deformity, no edema or tenderness, no joint swelling or clubbing. Neurological:Normal cognition and motor skills. Pulses:Carotid and radial pulses normal +2. Rest of the physical exam is non contributory Internal Med - H&P Results - Labs CBC & Chem 7: 09/06/18 01:06 09/06/18 01:06 Labs: Short CBC 09/05/18 Range/Units 17:24 Hgb 12.7 (11.5-15.4) g/dL Hct 38.1 (35.3-44.9) % - Assessment and Plan (1) Epistaxis Current Visit: Yes Status: Acute Assessment and plan: Patient presented with recurrence of epistaxis in the setting of uncontrolled hypertension. Failure to control bleed resulted in IR consult now status post left maxillary artery embolization. No further recurrence of bleed. Hemoglobin stable. We will reassess in the morning. -Continue pain control -blood pressure control -Appreciate ENT evaluation in the morning. (2) Hypertension Current Visit: Yes Status: Acute Assessment and plan: History of uncontrolled hypertension recently started on metoprolol and lisinopril. Patient again presented to the ED with a significantly elevated blood pressure 178/110. Patient received a total of 30 mg of hydralazine in the ED. Blood pressure currently 151/88 -Resume home antihypertensives. Patient may need additional BP medication. -We will give hydralazine as needed. Qualifiers: Hypertension type: unspecified Qualified Code(s): I10 - Essential (primary) hypertension (3) DVT prophylaxis Current Visit: No Status: Acute Assessment and plan: Pneumatic compression devices - Time Spent With Patient Total time spent is greater than 50% in coordination of care (as documented) at patient's floor/unit and/or counseling patient:
[2018-09-06 01:37] LABS: Basophils # 0.1 K/mcL (0.0-0.2); Basophils % 0.6 %; Eosinophils # 0.1 K/mcL (0.0-0.6); Eosinophils % 0.6 %; Hematocrit 35.4 % (35.3-44.9); Hemoglobin 11.8 g/dL (11.5-15.4); Immature Granulocytes % 0.5 % (0-4); Lymphocytes # 1.7 K/mcL (0.6-4.6); Mean Corpuscular HGB Conc 33.3 g/dL (31.6-35.5); Mean Corpuscular Hemoglobin 30.7 pg (28.0-33.3); Mean Corpuscular Volume 92.2 fL (83.0-100.0); Monocytes % 6.9 %; Neutrophils # 11.3 K/mcL (1.6-8.9); Platelet Count 373 K/mcL (140-400); Red Blood Count 3.84 M/mcL (3.82-4.97); Red Cell Distribution Width 12.5 % (11.5-14.5); Segmented Neutrophils % 79.4 %
[2018-09-06 01:44] LABS: Prothrombin Time 11.3 Seconds (9.4-12.1)
[2018-09-06 01:47] LABS: Activated Partial Thrombo Time 31.8 Seconds (26.0-36.0)
[2018-09-06 01:55] LABS: Alanine Aminotransferase 9 Units/L (7-52); Albumin 3.7 g/dL (3.5-5.7); Albumin/Globulin Ratio 1.5 (1.1-2.2); Alkaline Phosphatase 44 Units/L (34-104); Aspartate Amino Transferase 10 Units/L (13-39); BUN/Creatinine Ratio 23 (6-26); Bilirubin,Total 0.3 mg/dL (0.3-1.0); Blood Urea Nitrogen 11 mg/dL (6-20); Calcium 8.5 mg/dL (8.6-10.3); Carbon Dioxide 22 mEq/L (23-29); Chloride 106 mEq/L (98-107); Globulin 2.5 g/dL (2.4-3.5); Glucose 113 mg/dL (70-105); Osmolality,Calculated 282 (280-300); Potassium 3.7 mEq/L (3.5-5.1); Sodium 136 mEq/L (136-145); Total Protein 6.2 g/dL (6.4-8.9); eGFR For Non-African Americans > 60 (> 60)
[2018-09-06] MEDS: Lisinopril 20 MG TABLET PO SCH (07:51)
--- NOTE | 2018-09-06 18:15 | ENT - Consult Note ---
Date of Encounter: 09/06/18 Time of Encounter: 18:00 History of Present Illness History of present illness: White female status post internal maxillary embolization on the left side for left sided nasal bleeding patient has significant hypertension and had recurrent bleeding ineffectively controlled with nasal packing cause of recurrent bleeding and hypertension embolization was performed the patient was done well and is had no further bleeding were recommending low level of activity low level of anxiety note blowing sneezing coughing straining and lifting picking robbing and patient is encouraged to use humidification of the nose she is encouraged to pretty much maintain bed rest for the next 5 days and to follow-up in the ENT clinic with Dr. Herbert Sunday Past Med Surg Social Fam HX - Past Medical History Medical history: hypertension Psychiatric history: no psych history - Past Surgical History Surgical History: - Social History Smoking Status: Current every day smoker Smokeless Tobacco Status: No Alcohol use: none Drug use: none - Family History Mother Living Status: Still Living Age at : 75 Hx Family Cardiac Disorders: Yes (HTN) Hx Family HEENT Disorders: No Father Age: 74 Living Status: Still Living Hx Family Cardiac Disorders: Yes (CABG) Hx Family HEENT Disorders: No Medications and Allergies Lisinopril [Zestril] 20 mg PO DAILY #30 tablet 09/03/18 [Rx] Metoprolol [Lopressor] 25 mg PO BID #60 tablet 09/03/18 [Rx] Oxycodone HCl/Acetaminophen [Percocet 5-325 mg Tablet] 1 each PO QID PRN 3 Days #12 tablet 09/05/18 [Rx] Allergy/AdvReac Type Severity Reaction Status Date / Time Penicillins Allergy Rash Verified 09/01/18 11:14 ENT Exam Initial Vital Signs Temp Pulse Resp BP Pulse Ox 98.0 F 99 19 168/114 90 09/05/18 14:15 09/05/18 14:15 09/05/18 14:15 09/05/18 14:15 09/05/18 14:15 - General physical appearance well developed, well nourished, no distress, no pain. negative: moderate distress, severe distress, moderate pain, severe pain, cachectic, obese - Eyes PERRL, normal ocular movement, icteric - ENT normal pinna, normal nares, normal mucosa, no hearing loss, no congestion, Other (The left nasal cavity is swollen from previous packing irritation and patient has minimal breathing through the left side). negative: decreased hearing, deviated nasal septum, nasal discharge, poor [facility], dentures, mucosal exudate, dry mucosa - Neck no masses, trachea midline, no lymphadectomy. negative: deviated trachea, diffuse goiter, limited ROM - Respiratory normal expansion, normal respiratory effort, clear to percussion, clear to auscultation Exam Initial Vital Signs Temp Pulse Resp BP Pulse Ox 98.0 F 99 19 168/114 90 09/05/18 14:15 09/05/18 14:15 09/05/18 14:15 09/05/18 14:15 09/05/18 14:15 Results - Labs 09/06/18 01:06 09/06/18 01:06 Abnormal lab results WBC 14.3 K/mcL (4.3-11.1) H 09/06/18 01:06 MPV 9.0 fL (9.4-12.4) L 09/06/18 01:06 Neutrophils # 11.3 K/mcL (1.6-8.9) H 09/06/18 01:06 Carbon Dioxide 22 mEq/L (23-29) L 09/06/18 01:06 Creatinine 0.47 mg/dL (0.60-1.20) L 09/06/18 01:06 Glucose 113 mg/dL (70-105) H 09/06/18 01:06 Calcium 8.5 mg/dL (8.6-10.3) L 09/06/18 01:06 AST 10 Units/L (13-39) L 09/06/18 01:06 Serum Total Protein 6.2 g/dL (6.4-8.9) L 09/06/18 01:06 Diabetes panel 09/06/18 Range/Units 01:06 Sodium 136 (136-145) mEq/L Potassium 3.7 (3.5-5.1) mEq/L Chloride 106 (98-107) mEq/L Carbon Dioxide 22 L (23-29) mEq/L BUN 11 (6-20) mg/dL Creatinine 0.47 L (0.60-1.20) mg/dL Glucose 113 H (70-105) mg/dL Calcium 8.5 L (8.6-10.3) mg/dL AST 10 L (13-39) Units/L ALT 9 (7-52) Units/L Alkaline Phosphatase 44 (34-104) Units/L Albumin 3.7 (3.5-5.7) g/dL Calcium panel 09/06/18 Range/Units 01:06 Calcium 8.5 L (8.6-10.3) mg/dL Albumin 3.7 (3.5-5.7) g/dL Pituitary panel 09/06/18 Range/Units 01:06 Sodium 136 (136-145) mEq/L Potassium 3.7 (3.5-5.1) mEq/L Chloride 106 (98-107) mEq/L Carbon Dioxide 22 L (23-29) mEq/L BUN 11 (6-20) mg/dL Creatinine 0.47 L (0.60-1.20) mg/dL Glucose 113 H (70-105) mg/dL Calcium 8.5 L (8.6-10.3) mg/dL Adrenal panel 09/06/18 Range/Units 01:06 Sodium 136 (136-145) mEq/L Potassium 3.7 (3.5-5.1) mEq/L Chloride 106 (98-107) mEq/L Carbon Dioxide 22 L (23-29) mEq/L BUN 11 (6-20) mg/dL Creatinine 0.47 L (0.60-1.20) mg/dL Glucose 113 H (70-105) mg/dL Calcium 8.5 L (8.6-10.3) mg/dL Total Bilirubin 0.3 (0.3-1.0) mg/dL AST 10 L (13-39) Units/L ALT 9 (7-52) Units/L Alkaline Phosphatase 44 (34-104) Units/L Albumin 3.7 (3.5-5.7) g/dL All other labs normal. Consult Discharge Plan - Plan Instructions: Epistaxis (DC) Additional Instructions: Follow-up appointments: If there is not an appointment listed below, please call your physician and schedule a follow-up appointment. If you have congestive heart failure and your symptoms return, make an appointment with your physician. Medication List: Carry an up to date list of medications you are taking at all time. We have given you an updated medication list including any new medications that you have been prescribed. Please provide that list to your primary provider Symptoms: If your condition changes or you experience any of the following symptoms, notify your physician immediately: Unusual or worsening pain, fever, persistent nausea and vomiting, bleeding, increase in swelling (especially in your legs), sudden weight gain, extreme dizziness, chest pain, increased drainage or redness from a wound or incision. Go to the emergency department if you experience a problem with breathing. Weights: If you have a history of swelling or shortness of breath, weigh yourself daily and notify your physician if you have a weight gain of two or more pounds in one day or 5 or more pounds in a week. If you experience any of the warning signs for stroke: Sudden numbness or weakness of the face, arm or leg; especially on one side of the body, sudden confusion, trouble speaking or understanding, sudden trouble seeing in one or both eyes, sudden trouble walking, dizziness, loss of balance or coordination, sudden sever headache with no cause; Call 911 or go to the emergency room. Stroke is a medical emergency. Some risk factors for stroke: Age, cigarette smoking, diabetes, excessive alcohol consumption, family history, high blood pressure, overweight, physical inactivity, prior stroke, heart attack, diagnosis of carotid artery stenosis or other artery disease. If you smoke, STOP: Smoking or tobacco use significantly increases your risk of heart and lung disease. Your chance of disease greatly increases if you continue to smoke. For more information, call the [place] tobacco quit line for smoking cessation 2-855-NJWK-NOW ( ) Referrals: Darion Sheth DO [Primary Care Provider] - 09/10/18 10:00 am
--- NOTE | 2018-09-06 18:22 | Discharge Summary ---
- NOTES TO OUTPATIENT PROVIDER Notes to Outpatient Provider: Presented with hypertensive urgency and epistaxis- ineffectively controlled with nasal packing recurrent bleeding and hypertension embolization of left maxillary artery. Blood pressure has been controlled no further bleeding will follow up with ENT in 5 days vies to monitor blood pressure daily blood pressure log Date of Encounter: 09/07/18 Time of Encounter: 07:39 - Discharge Diagnosis (1) Epistaxis Priority: Primary Status: Acute (2) Hypertension Priority: Primary Status: Acute Qualifiers: Hypertension type: unspecified Qualified Code(s): I10 - Essential (primary) hypertension Hospital course: Ms. Don is a 42 year old female past medical history of hypertension was recently discharged from this facility after experiencing severe hypertensions and epistaxis-she received [employer] blood pressure was controlled and discharged. She has a follow-up appointment with ENT in the packing was removed. She then began to experience a nosebleed as well as hypertension. She presented back to [facility] ER with blood pressure 170/110. Several attempts to packing control patient's nosebleed was unsuccessful she did undergo a left maxillary artery embolization per interventional radiology. Blood pressure medications were resumed and patient's blood pressure has stabilized. She was monitored for any drop of hemoglobin which continue to be stable. No more active bleeding. No bleeding or hematoma at right groin access site. ENT did see the patient advising to follow-up in 5 days. Advised patient to follow-up with primary care provider and to monitor blood pressure daily to keep a log. Continue with lisinopril 20 mg daily as well as metoprolol 25 mg twice a day. We will send patient home with a prescription of [place] for pain. Oarrs review was completed. Patient is hemodynamically stable at this time with no active bleeding and she is ready for discharge. - Time Spent with Patient Total time spent providing and/or coordinating discharge services: - Discharge Medications Prescriptions: New Acetaminophen [Tylenol] 650 mg PO Q4HR PRN tablet PRN Reason: Mild Pain Hydrocodone/Acetaminophen [[place] 5-325 Tablet] 1 each PO QID 3 Days #12 tablet Continue Lisinopril [Zestril] 20 mg PO DAILY #30 tablet Metoprolol [Lopressor] 25 mg PO BID #60 tablet Home Medications: Lisinopril [Zestril] 20 mg PO DAILY #30 tablet 09/03/18 [Rx] Metoprolol [Lopressor] 25 mg PO BID #60 tablet 09/03/18 [Rx] Acetaminophen [Tylenol] 650 mg PO Q4HR PRN tablet 09/07/18 [Rx] Hydrocodone/Acetaminophen [[place] 5-325 Tablet] 1 each PO QID 3 Days #12 tablet 09/07/18 [Rx] Allergies/Adverse Reactions: Allergy/AdvReac Type Severity Reaction Status Date / Time Penicillins Allergy Rash Verified 09/01/18 11:14 Date of admission: 09/05/18 20:20 Primary care physician: Darion Sheth DO Consults: 09/05/18 19:57 Consult to ENT [CONS] Stat Consulting Provider: E[facility] [place] Reason for Consult: intractable nosebleed with IR intervention. Spoke with Dr. Herbert at 1700 and 1730. Call Completed: Yes Discharging clinician: Michelle Osuna Anticipated date of discharge: 09/07/18 - Constitutional Vitals: Temp Pulse Resp BP Pulse Ox 98.4 F 96 15 124/85 97 09/06/18 15:51 09/06/18 15:51 09/06/18 15:51 09/06/18 15:51 09/06/18 15:51 Exam: Skin: Free of rash and discoloration. Eyes: Sclera is white. There is no discharge from eyes. ENMT: Oral/pharyngeal mucosa is normal in appearance. There is no discharge from nose or ears. Respiratory: Normal breath sounds with no crackles and wheezes bilaterally. CV: Heart is regular with no gallop or murmur. GI: Abdomen is flat and soft with no palpable mass or visceromegaly. : There is no tenderness in patient's flanks bilaterally. Neuro exam: He has good strength in upper and lower extremities. He has normal eye movements. Psychiatric: He has normal affect. His thought process is appropriate to the situation. - Patient Status Disposition: Home, Self-Care Condition: Good Functional capacity at discharge: independent ambulation Overall status at discharge: patient is back to baseline - Discharge Instructions Instructions: Epistaxis (DC), Chronic Hypertension (DC) Follow Up With: Darion Sheth DO [Primary Care Provider] - 09/10/18 10:00 am Additional Instructions: Follow-up appointments: If there is not an appointment listed below, please call your physician and schedule a follow-up appointment. If you have congestive heart failure and your symptoms return, make an appointment with your physician. Medication List: Carry an up to date list of medications you are taking at all time. We have given you an updated medication list including any new medications that you have been prescribed. Please provide that list to your primary provider Symptoms: If your condition changes or you experience any of the following symptoms, notify your physician immediately: Unusual or worsening pain, fever, persistent nausea and vomiting, bleeding, in crease in swelling (especially in your legs), sudden weight gain, extreme dizziness, chest pain, increased drainage or redness from a wound or incision. Go to the emergency department if you experience a problem with breathing. Weights: If you have a history of swelling or shortness of breath, weigh yourself daily and notify your physician if you have a weight gain of two or more pounds in one day or 5 or more pounds in a week. If you experience any of the warning signs for stroke: Sudden numbness or weakness of the face, arm or leg; especially on one side of the body, sudden confusion, trouble speaking or understanding, sudden trouble seeing in one or both eyes, sudden trouble walking, dizziness, loss of balance or coordination, sudden sever headache with no cause; Call 911 or go to the emergency room. Stroke is a medical emergency. Some risk factors for stroke: Age, cigarette smoking, diabetes, excessive alcohol consumption, family history, high blood pressure, overweight, physical inactivity, prior stroke, heart attack, diagnosis of carotid artery stenosis or other artery disease. If you smoke, STOP: Smoking or tobacco use significantly increases your risk of heart and lung disease. Your chance of disease greatly increases if you continue to smoke. For more information, call the [place] tobacco quit line for smoking cessation 4-143-LCGS-NOW ( ) Low activity low level anxiety no blowing sneezing coughing straining or lifting moving objects encouraged to use humidification - Diet and Activity Activity: other (Low-level activity no lifting anything greater than 5 pounds no blowing nose sneezing coughing straining) Diet: low salt diet
--- NOTE | 2018-09-06 18:38 | Event Note ---
Date of Encounter: 09/06/18 Time of Encounter: 18:34 Patient was seen and examined earlier this am by hospitalist services- Today she states that she does have a mild HUSSEIN and swelling to Left side of face, also complains of R groin insertion site aching. No hematoma noted to access site. No fever or chills today. BP stable today no active bleeding. Reviewed case with ENT will closely monitor overnight to ensure no further spikes in BP or any further bleeding. Discussed plan with the patient who verbalized understanding
[2018-09-06] MEDS: *HR* OxyCODONE Immed Rel 5 MG TABLET PO PRN (20:05)
[2018-09-07 07:43] VITALS: BP 130/87
[2018-09-07] MEDS: Lisinopril 20 MG TABLET PO SCH (08:05)
[2018-09-07 08:25] LABS: Basophils # 0.1 K/mcL (0.0-0.2); Basophils % 0.6 %; Eosinophils # 0.2 K/mcL (0.0-0.6); Eosinophils % 1.5 %; Hemoglobin 12.1 g/dL (11.5-15.4); Immature Granulocytes % 0.5 % (0-4); Lymphocytes # 2.5 K/mcL (0.6-4.6); Lymphocytes % 25.5 %; Mean Corpuscular HGB Conc 33.6 g/dL (31.6-35.5); Mean Corpuscular Hemoglobin 31.1 pg (28.0-33.3); Mean Corpuscular Volume 92.5 fL (83.0-100.0); Mean Platelet Volume 8.8 fL (9.4-12.4); Monocytes # 1.4 K/mcL (0.0-1.3); Neutrophils # 5.6 K/mcL (1.6-8.9); Platelet Count 381 K/mcL (140-400); Red Blood Count 3.89 M/mcL (3.82-4.97); Red Cell Distribution Width 12.5 % (11.5-14.5); Segmented Neutrophils % 57.9 %
== END 2018-09-07 10:21 | disposition home or self-care (01) ==
LOC: EMEROOARM 14:08 → 3BNU 14:08
PROVIDERS: ADMIT Internal Medicine; ATTEND Internal Medicine